=== PATIENT | female | born 1965 | race African-American/Black ===

== ENCOUNTER 2016-05-07 06:39 | Day surgery (SDC) | payer MEDICARE, MEDICAID ==
[~2016-05-07] VITALS: Ht 170.2 cm; Wt 80.3 kg
[2016-05-07] VITALS (7 sets, daily range): BP systolic 140–167; BP diastolic 56–95
[~2016-05-07 06:39] MED LIST: ASPI1TAB PO; ATOR1TAB18 PO; CALC600T10 PO; FAMO40TA3 PO; FERR325T3 PO; K-TA1TAB PO; POTA10LI10 PO
[2016-05-07] MEDS ORDERED: dexameTHASONE 4 MG/ML 1ML VIAL (J1100) IV ONE (07:00)
[2016-05-07] MEDS ORDERED: LR 1,000 ML IV SCH ×2 (07:00→12:15)
[2016-05-07] MEDS ORDERED: AMPICILLIN SOD/SULBACTAM SOD 3 GM in D5W MINI-BAG PLUS 100 ML IV ONE (07:00)
[2016-05-07 07:43] LABS: CONTROL LINE UCG INT CTR LINE PRESENT
[2016-05-07] MEDS ORDERED: ONDANSETRON 4MG/2ML VIAL (J2405) As Ordered ONE (08:37)
[2016-05-07] MEDS ORDERED: PROPOFOL 200 MG/20 ML VIAL As Ordered ONE (08:37)
[2016-05-07] MEDS ORDERED: fentaNYL 250 MCG/5 ML INJECTION (J3010) As Ordered ONE (08:37)
[2016-05-07] MEDS ORDERED: ROCURONIUM BROMIDE 50 MG/5 ML VIAL As Ordered ONE (08:37)
[2016-05-07] MEDS ORDERED: MIDAZOLAM INJ 2 MG/2 ML VIAL (J2250) As Ordered ONE (08:38)
[2016-05-07] MEDS ORDERED: THROMBIN SOLN 5,000 UNITS VIAL As Ordered ONE (09:36)
[2016-05-07] MEDS ORDERED: LIDOCAINE 2% W/ EPINEPHRINE 1.7 ML DENTAL INJ As Ordered ONE ×3 (09:36→13:05)
[2016-05-07] MEDS ORDERED: LABETALOL HCL 100 MG/20 ML VIAL As Ordered ONE (10:44)
[2016-05-07] MEDS ORDERED: NEOSTIGMINE 1MG/ML 5 ML SYRINGE (J2710) As Ordered ONE (10:45)
[2016-05-07] MEDS ORDERED: GLYCOPYRROLATE INJ 0.2 MG/ML 2 ML VIAL As Ordered ONE (10:45)
[2016-05-07] MEDS ORDERED: HYDROmorphone HCL 2 MG/ML 1ML VIAL (J1170) As Ordered ONE (11:11)
[2016-05-07] MEDS ORDERED: LIDOCAINE 2% W/ EPINEPHRINE 1.7 ML DENTAL INJ XX ONE (11:30)
[2016-05-07] MEDS ORDERED: THROMBIN SOLN 5,000 UNITS VIAL TOP ONE (11:45)
[2016-05-07] MEDS ORDERED: ONDANSETRON 4MG/2ML VIAL (J2405) IV PRN (12:15)
[2016-05-07] MEDS ORDERED: fentaNYL 100 MCG/2 ML INJECTION (J3010) IV PRN (12:15)
[2016-05-07] MEDS ORDERED: PERCOCET 5MG/325MG TAB PO PRN (12:15)
[2016-05-07] MEDS ORDERED: HYDROmorphone HCL 1 MG/ML SYRINGE (J1170) IV PRN (12:15)
[2016-05-07] MEDS ORDERED: NORCO, ANEXSIA 5/325MG TABLET (HYDROcodone/ACETAMINOPHEN) PO PRN (13:00)
[2016-05-07] MEDS ORDERED: ACETAMINOPHEN 500 MG TAB PO PRN (13:00)
[2016-05-07] MEDS ORDERED: D5W/0.45% SODIUM CHLORIDE 1,000 ML IV SCH (13:00)
[2016-05-07] MEDS ORDERED: MORPHINE 2 MG/ML 1ML SYRINGE IV PRN (13:15)
--- NOTE | 2016-05-07 13:26 | HPEPDOC ---
Medical History and Physical Date of Admission 05/07/16 History and Physical ATTENDING: PCP: Dr Vilma Jenkins CC: POD 0 Full Dental extraction HPI: 50yoF with a past medical history significant for CVA 2011, complicated by right-sided hemiplegia and dysarthria, history of iron deficiency anemia who is seen POD 0 s/p full dental extraction as per Dr Londono. Pt is seen in PACU. Denies any fevers, chills, weakness, fatigue, TAYLOR, CP, SOB, cough, palpitations, abdominal pain, N/V/D or changes in bowel or bladder habits. The hospitalist team was consulted to assist with medical management. 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 ETOH: Denies Illicit Drugs: Denies Advanced directives: None FAMHX: Mother: Father: ROS: As noted in HPI, otherwise 11pt ROS of systems reviewed and unremarkable. PE: GEN: 50yoF, appears stated age. Well-nourished, well developed. No acute distress. Alert and responds to questions. HEENT: Normocephalic, atraumatic. Pupils are equal, round, and reactive to light. Extraocular movements are intact. No nystagmus appreciated. Sclera are nonicteric. Conjunctiva without injection. Nose midline. No facial asymmetry. Trachea midline. Oral packing noted. No lymphadenopathy or thyromegaly appreciated. CHEST: Regular rate and rhythm, +S1, +S2 LUNGS: Clear to auscultation bilaterally. No wheezes, rales, or rhonchi. Breathing appears symmetric and easy. Patient is speaking in full sentences. No accessory muscle use. ABD: Round, soft, non-tender, non-distended. +Bowel sounds throughout. No rebound or guarding. No costovertebral angle tenderness. EXT: Pulses 2+ bilaterally dorsalis pedis and radial. No lower extremity edema appreciated. SKIN: Morris, dry, warm. Capillary refill <2sec. No rashes. A&P: 50yoF with a past medical history significant for CVA 2011, complicated by right-sided hemiplegia and dysarthria, history of iron deficiency anemia who is seen POD 0 s/p full dental extraction as per Dr Londono. The patient will be admitted to M/[facility] to be followed by Dr. Butts's service. POD 0 Full dental extraction as per Dr Londono. Pt to be placed on Unasyn as per Dr Londono. IVF at 90cc/hr. Pain control as per Oral surgery. ASA on hold as per oral surgery. Check f/u labs in AM. History of CVA/right-sided hemiplegia/dysarthria. Aspirin 81 mg is on hold as per oral surgery at this time. Continue Lipitor 80 mg daily. Elevated Factor VIII activity. ASA on hold as per oral surgery. Unsteady gait. Ambulates with assistance of cane. History of iron deficiency anemia. Cont supplement. GERD/gastric ulcer. Continue H2 john Hypertension. BP currently 144/91. Patient does not take antihypertensives as outpatient. Monitor. Hypokalemia. Continue supplement, check labs in AM. DVT prophylaxis. Vital Signs Item Value Date Time Urine Test NEGATIVE 05/07/16 0726 Oxygen Delivery Method Nasal Cannula 05/07/16 1310 Oxygen Flow Rate 2 L/min 05/07/16 1310 Vital Signs Label Value Date Time Patient Temperature 97.9 degrees F 05/07/16 1310 Temperature Source Skin 05/07/16 1310 Respiratory Rate 20 bpm 05/07/16 1310 Blood Pressure Assessment 144/91 (108) 05/07/16 1310 Bedside Pulse Oximetry 96 % 05/07/16 1311 Pulse 81 05/07/16 1311 Laboratory Data Labs 24H Laboratory Tests 2 05/07/16 07:26: Urine Test NEGATIVE CBC/BMP Laboratory Tests 05/07/16 07:01 Home Medications Scheduled Aspirin (Aspirin 81) 81 Mg Tab 81 MG PO DAILY Atorvastatin Calcium (Atorvastatin Calcium) 80 Mg Tab 80 MG PO DAILY Calcium (Calcium) 600 Mg Tab 600 MG PO BID Famotidine (Famotidine) 40 Mg Tab 40 MG PO DAILY Ferrous Sulfate (Ferrous Sulfate) 325 Mg Tab 325 MG PO DAILY Potassium Chloride (K-Tab) 20 Meq Tab 20 MEQ PO BID Allergies Coded Allergies: No Known Allergies (Unverified , 04/29/16) Skylar Ivory May 07, 2016 13:26
[2016-05-07 14:53] LABS: ALBUMIN 3.3 GM/DL (3.2-5.2); ALBUMIN/GLOBULIN RATIO 0.87 (1.00-1.93); ALKALINE PHOSPHATASE 49 U/L (45-117); ALT/SGPT 13 U/L (12-78); ANION GAP 8 MEQ/L (8-16); AST/SGOT 8 U/L (15-37); BILIRUBIN,TOTAL 0.1 MG/DL (0.2-1.0); BLOOD UREA NITROGEN 8 MG/DL (7-18); CALCIUM LEVEL 8.4 MG/DL (8.5-10.1); CARBON DIOXIDE LEVEL 25 MEQ/L (21-32); CHLORIDE LEVEL 112 MEQ/L (98-107); CREATININE FOR GFR 0.85 MG/DL (0.55-1.02); GLOMERULAR FILTRATION RATE > 60.0 (>58); GLUCOSE, FASTING 144 MG/DL (70-105); SODIUM LEVEL 145 MEQ/L (136-145); TOTAL PROTEIN 7.1 GM/DL (6.4-8.2)
[2016-05-07 14:59] LABS: BASO % 0.1 % (0.0-1.0); EOS % 0.2 % (0.0-3.0); LARGE UNSTAINED CELL # 0.1 K/mm3 (0.0-0.4); LARGE UNSTAINED CELL % 0.6 % (0.0-4.0); LYMPH # 0.5 K/mm3 (1.5-4.5); LYMPH % 5.2 % (24.0-44.0); MEAN CORPUSCULAR HEMOGLOBIN 27.9 pg (27.0-33.0); MEAN CORPUSCULAR VOLUME 89.9 fl (80.0-96.0); MONO # 0.2 K/mm3 (0.0-0.8); MONO % 2.3 % (0.0-5.0); NEUTROPHILS # 8.3 K/mm3 (1.8-7.7); NEUTROPHILS % 91.6 % (36.0-66.0); PLATELET COUNT, AUTOMATED 291 k/mm3 (150-450); RED CELL DISTRIBUTION WIDTH 13.8 % (11.5-14.5); WHITE BLOOD COUNT 9.1 K/mm3 (4.0-10.0)
[2016-05-07] MEDS: POTASSIUM CHLORIDE 10 MEQ SR TABLET PO SCH ×2 (15:08→21:18)
[2016-05-07] MEDS: ATORVASTATIN 20 MG TAB PO SCH (16:08)
[2016-05-07] MEDS: FERROUS SULFATE 325MG TAB PO SCH (16:08)
[2016-05-07] MEDS: FAMOTIDINE 20 MG TAB PO SCH (16:09)
[2016-05-07] MEDS: AMPICILLIN SOD/SULBACTAM SOD 3 GM in D5W MINI-BAG PLUS 100 ML IV SCH ×2 (17:35→21:18)
[2016-05-08 02:00] VITALS: BP 159/89
[2016-05-08] MEDS: AMPICILLIN SOD/SULBACTAM SOD 3 GM in D5W MINI-BAG PLUS 100 ML IV SCH (03:56)
[2016-05-08 06:00] VITALS: BP 142/65
[2016-05-08 06:33] LABS: MEAN CORPUSCULAR HEMOGLOBIN 27.4 pg (27.0-33.0); MEAN CORPUSCULAR VOLUME 88.6 fl (80.0-96.0); WHITE BLOOD COUNT 13.7 K/mm3 (4.0-10.0)
[2016-05-08 06:57] LABS: ALKALINE PHOSPHATASE 47 U/L (45-117); ALT/SGPT 12 U/L (12-78); ANION GAP 9 MEQ/L (8-16); AST/SGOT 8 U/L (15-37); BILIRUBIN,TOTAL 0.3 MG/DL (0.2-1.0); BLOOD UREA NITROGEN 7 MG/DL (7-18); CALCIUM LEVEL 8.7 MG/DL (8.5-10.1); CARBON DIOXIDE LEVEL 25 MEQ/L (21-32); CHLORIDE LEVEL 112 MEQ/L (98-107); CREATININE FOR GFR 0.84 MG/DL (0.55-1.02); GLOMERULAR FILTRATION RATE > 60.0 (>58); GLUCOSE, FASTING 133 MG/DL (70-105); POTASSIUM SERUM 3.6 MEQ/L (3.5-5.1); SODIUM LEVEL 146 MEQ/L (136-145); TOTAL PROTEIN 7.3 GM/DL (6.4-8.2)
--- NOTE | 2016-05-08 08:09 | RO ---
DATE OF PROCEDURE: 05/07/2016 PREOPERATIVE DIAGNOSES: 1. History of cerebral vascular accident. 2. Hopeless and abscessed remaining dentition. POSTOPERATIVE DIAGNOSES: Status post the above. PROCEDURE PERFORMED: Full mouth extraction - that is extraction of all remaining teeth and four quadrants of alveoloplasty as well as bilateral mandibular elizabeth removal. SURGEON: Ronak Londono DMD, MD AFFILIATE MARKETING MANAGER: None. ANESTHESIA: General endotracheal anesthesia via nasal ray. SPECIMEN: None INDICATIONS FOR SURGERY: Mrs. Kuhn is a pleasant 50-year-old female who was referred to my office for evaluation for extraction of all of her remaining teeth. Her past medical history is contributory for cognitive impair, including a history of cerebrovascular accident. She on numerous medications. Her clinical examination reveals poor dentition with gross caries and bone loss around every single tooth in her oral cavity as well as abscessed teeth in each quadrant and small bilateral mandibular elizabeth. Radiographic examination reveals a Panorex with multiple grossly decayed teeth with multiple periapical radiolucencies, especially in the left and the right mandible as well as in the upper right maxilla. Discussion was made with the patient and her regarding the treatment options due to her past medical history and dissipated bleeding due to her abscesses and periodontal disease as well as her history of daily aspirin, I recommended the procedure to be performed in an operating room setting under the care of anesthesiologist with general anesthesia. Complete history and physical was obtained and is in the chart. Informed consent was explained in detail and is signed by the patient's . DESCRIPTION OF PROCEDURE: On May 07, 2016, [facility] she was met by myself and the anesthesiologist. Any last minute questions were addressed. At that point, the patient was taken back to the operating room. She was laid supine on the operating room table. Ulnar nerve protectors were placed. Noninvasive cardiac monitors were applied. At that point, the patient was induced for general anesthesia and was intubated with a nasal ray without any incident. The nasal tube was then secured to the patient's head. At this point, the patient was then prepped and draped in the usual sterile fashion. A time-out procedure was performed to identify the patient, the procedure and any other precautions. Antibiotics in the form of 3 grams of Unasyn were administered preoperatively as well as 8 mg of Decadron. At this point, a moist throat pack was inserted in the patient's oropharynx followed by the administration of 2% lidocaine with 1:100,000 epinephrine as local infiltrations and mandibular blocks. At this point, a 15 blade was then used to make an incision from the right tuberosity to the maxillary midline. The flap was fully reflected to expose the bony crest and the facial cortices of all the teeth. At this point, the teeth in the upper right quadrant were luxated and delivered. An abundant amount of granulation tissue and necrotic tissue was removed from each apex of each tooth. No sinus exposure was noted. The sockets were copiously irrigated and curetted and Gelfoam with thrombin 5000 were inserted in each socket. At this point, #3-0 Vicryl sutures were then used to close the flap in a continuous and interrupted fashion. The exact same technique was then performed in the upper left quadrant where a #15 blade was used to make an incision from the left tuberosity all the way to the maxillary midline, flap was fully reflected, facial cortex and crystal bone was exposed. The teeth were fully luxated and delivered. An abundant amount of granulation tissue, necrotic tissue was noted and removed and evacuated from each socket apex. No sinus exposure was noted and each socket was curetted and irrigated and Gelfoam with thrombin was placed in each socket. The flaps were then closed with #3-0 Vicryl sutures in a continuous and interrupted fashion. At this point, the attention was then given to the mandibular arch where a full-thickness flap was released from area #17 across the mandibular crest to the midline, continued to the right retromolar area. Both flaps had a distal release incision. The flaps were fully reflected and all the mandibular teeth were luxated and delivered. To note, there was a very incredible amount of granulation tissue and necrotic tissue in the mandibular molars bilaterally. These necrotic and granulation tissues were fully removed and evacuated and curetted out. An alveoloplasty was performed in the lower left and lower right quadrants as well as removal of the bilateral mandibular elizabeth. Copious irrigation was performed and Gelfoam with thrombin was placed in each extraction socket. At this point, the flap was trimmed and closed with #3-0 Vicryls in a continuous and interrupted fashion. Hemostasis was achieved with ease with gauze pressure. At this point, once the teeth were removed, the oral cavity was irrigated and suctioned. The throat pack was removed, and the patient was awakened from general anesthesia and taken back to the post-anesthesia care unit (PACU). COMPLICATIONS: None. ESTIMATED BLOOD LOSS: About 200 mL. DRAINS: There were no drains placed.
[2016-05-08] MEDS ORDERED: LORT5TAB PO (08:26)
[2016-05-08] MEDS ORDERED: AMOX500C PO (08:26)
[2016-05-08] MEDS ORDERED: PERI0.126 PO (08:26)
[2016-05-08] MEDS: FERROUS SULFATE 325MG TAB PO SCH (08:58)
[2016-05-08] MEDS: ATORVASTATIN 20 MG TAB PO SCH (08:58)
[2016-05-08] MEDS: POTASSIUM CHLORIDE 10 MEQ SR TABLET PO SCH (08:58)
[2016-05-08] MEDS: FAMOTIDINE 20 MG TAB PO SCH (08:58)
== END 2016-05-08 11:03 | disposition home or self-care (01) ==
LOC: M SDC 06:39 → M MSPAV 13:26 → M SDC 05-08 11:03
PROVIDERS: ATTEND Dentist
DX: K02.9 Dental caries, unspecified (principal); I10 Essential (primary) hypertension; E78.00 Pure hypercholesterolemia, unspecified; R29.898 Other symptoms and signs involving the musculoskeletal system; I69.398 Other sequelae of cerebral infarction; Z79.899 Other long term (current) drug therapy; Z79.82 Long term (current) use of aspirin
CPT/HCPCS: 36415; 41899; 80053; 84132; 84703; 85025; 85027; 88300; J1100; J1170; J2250; J2405; J2710; J3010